=== PATIENT | female | born 1955 | race Caucasian/White ===

== ENCOUNTER 2025-04-07 14:52 | Emergency (ER) | payer OTHER ==
[~2025-04-07] VITALS: Ht 175.3 cm; Wt 132.0 kg
[2025-04-07 19:53] LABS: BASO # 0.1 10^3/uL (0.0-0.2); BASO % 0.8 % (0.0-1.0); EOS # 0.1 10^3/uL (0.0-0.5); EOS % 1.9 % (0.0-3.0); LYMPH # 2.8 10^3/uL (1.5-5.0); LYMPH % 38.4 % (24.0-44.0); MONO # 0.7 10^3/uL (0.0-0.8); MONO % 9.8 % (2.0-8.0); NEUTROPHILS # 3.5 10^3/uL (1.5-8.5); NEUTROPHILS % 48.8 % (36.0-66.0); PLATELET COUNT, AUTOMATED 253 10^3/uL (150-450)
[2025-04-07 20:14] LABS: INR 0.94
[2025-04-07] MEDS ORDERED: ISOVUE-370 76% 100 ML VIAL As Ordered ONE (20:22)
[2025-04-07 20:25] LABS: ALT/SGPT 13.0 U/L (7.0-40); AST/SGOT 14.0 U/L (<34)
[2025-04-07 20:54] LABS: CK-MB VALUE MASS 1.2 NG/ML (<3.6); CPK CREATINE PHOSPHOKINASE 102.0 U/L (34-145); MB/CK RELATIVE INDEX 1.17 (< OR =4)
[2025-04-07 22:44] LABS: CK-MB VALUE MASS 1.7 NG/ML (<3.6)
[2025-04-07] MEDS: ACETAMINOPHEN *IV* 1,000 MG in IV 1 EA IV ONE (23:40)
[2025-04-08] MEDS: ACETAMINOPHEN 325 MG TAB PO ONE (00:10)
[2025-04-08] MEDS ORDERED: PRED20TA PO (00:58)
[2025-04-08 01:00] VITALS: BP 118/55; TEMP 97.6; O2SAT 96
== END 2025-04-08 01:20 | disposition home or self-care (01) ==
LOC: M ED 14:52
DX: M71.22 Synovial cyst of popliteal space [Baker], left knee (principal); R00.1 Bradycardia, unspecified; E11.9 Type 2 diabetes mellitus without complications; Z79.52 Long term (current) use of systemic steroids
CPT/HCPCS: 71045; 71275; 80047; 80076; 82550; 82553; 84484; 85025; 85610; 85730; 93005; 93041; 93971; 94760; 96374; 99285; J2919; Q9967

== ENCOUNTER 2025-06-03 19:28 | Emergency (ER) | payer OTHER, MEDICAID ==
[~2025-06-03] VITALS: Ht 175.3 cm; Wt 133.2 kg
[~2025-06-03 19:28] MED LIST: ATOR1TAB19 PO; LOVE1INJ SC; METF500T13 PO; PRED20TA PO
[2025-06-03 20:47] LABS: BASO # 0.1 10^3/uL (0.0-0.2); BASO % 0.8 % (0.0-1.0); EOS # 0.2 10^3/uL (0.0-0.5); EOS % 3.7 % (0.0-3.0); LYMPH # 2.2 10^3/uL (1.5-5.0); LYMPH % 35.5 % (24.0-44.0); MONO # 0.6 10^3/uL (0.0-0.8); MONO % 10.2 % (2.0-8.0); NEUTROPHILS # 3.1 10^3/uL (1.5-8.5); NEUTROPHILS % 49.5 % (36.0-66.0); PLATELET COUNT, AUTOMATED 198 10^3/uL (150-450)
[2025-06-03] MEDS: NS (Normal Saline) 0.9% 1,000 ML IV ONE (20:59)
[2025-06-03] MEDS: MORPHINE 2 MG/ML 1 ML VIAL IV ONE ×2 (21:00→22:21)
[2025-06-03 21:13] LABS: ALT/SGPT 10.0 U/L (7.0-40); AST/SGOT 10.0 U/L (<34); CALCIUM LEVEL 8.3 MG/DL (8.3-10.6); CARBON DIOXIDE LEVEL 29.0 MMOL/L (20-31); CHLORIDE LEVEL 107.0 MMOL/L (98-107); CREATININE FOR GFR 0.89 MG/DL (0.55-1.30); GLOMERULAR FILTRATION RATE 70.1 (>45); POTASSIUM SERUM 4.3 MMOL/L (3.5-5.1); SODIUM LEVEL 144.0 MMOL/L (136-145)
[2025-06-03] MEDS ORDERED: ISOVUE-370 76% 100 ML VIAL As Ordered ONE (21:50)
[2025-06-03] MEDS ORDERED: AMOX875T2 PO (22:50)
[2025-06-03] MEDS ORDERED: PERC5TAB12 PO (22:50)
[2025-06-04] MEDS: AUGMENTIN 875 MG TAB PO ONE (00:02)
[2025-06-04] MEDS: PERCOCET 5MG/325MG TAB PO ONE (00:04)
[2025-06-04 01:44] VITALS: BP 160/67; TEMP 98.2; O2SAT 92
[2025-06-04] MEDS: OXYCODONE/APAP 5MG/325MG(HOME DOSE PACK) PO ONE (01:47)
== END 2025-06-04 01:49 | disposition home or self-care (01) ==
LOC: M ED 19:28
DX: R19.00 Intra-abdominal and pelvic swelling, mass and lump, unspecified site (principal); N28.1 Cyst of kidney, acquired; K76.89 Other specified diseases of liver; K57.30 Diverticulosis of large intestine without perforation or abscess without bleeding; Z98.890 Other specified postprocedural states; I10 Essential (primary) hypertension; E78.5 Hyperlipidemia, unspecified; E11.9 Type 2 diabetes mellitus without complications; D68.2 Hereditary deficiency of other clotting factors; Z79.2 Long term (current) use of antibiotics; Z79.899 Other long term (current) drug therapy; Z79.4 Long term (current) use of insulin; Z79.02 Long term (current) use of antithrombotics/antiplatelets
CPT/HCPCS: 36415; 74177; 80053; 83605; 83690; 84145; 85025; 87040; 96374; 96376; 99285; Q9967

== ENCOUNTER 2025-06-25 21:10 | Emergency (ER) | payer OTHER, MEDICAID ==
[~2025-06-25] VITALS: Ht 175.3 cm; Wt 133.0 kg
[~2025-06-25 21:10] MED LIST changes: +AMOX875T2 PO; +PERC5TAB12 PO
[2025-06-25 22:21] LABS: BASO # 0.1 10^3/uL (0.0-0.2); BASO % 0.8 % (0.0-1.0); EOS # 0.2 10^3/uL (0.0-0.5); EOS % 2.5 % (0.0-3.0); LYMPH # 2.2 10^3/uL (1.5-5.0); LYMPH % 26.4 % (24.0-44.0); MONO # 0.8 10^3/uL (0.0-0.8); MONO % 9.7 % (2.0-8.0); NEUTROPHILS # 5.1 10^3/uL (1.5-8.5); NEUTROPHILS % 60.1 % (36.0-66.0); PLATELET COUNT, AUTOMATED 235 10^3/uL (150-450)
[2025-06-25 23:04] LABS: ALT/SGPT 11 U/L (7.0-40); AST/SGOT 36 U/L (<34); CALCIUM LEVEL 8.3 MG/DL (8.3-10.6); CARBON DIOXIDE LEVEL 29 MMOL/L (20-31); CHLORIDE LEVEL 102 MMOL/L (98-107); CREATININE FOR GFR 0.87 MG/DL (0.55-1.30); FREE T4 1.07 NG/DL (0.89-1.76); GLOMERULAR FILTRATION RATE 72.1 (>45); POTASSIUM SERUM 5.6 MMOL/L (3.5-5.1); SODIUM LEVEL 139 MMOL/L (136-145)
[2025-06-25] MEDS: MORPHINE 2 MG/ML 1 ML VIAL IV ONE (23:30)
[2025-06-25] MEDS: ACETAMINOPHEN *IV* 1,000 MG in IV 1 EA IV ONE (23:48)
[2025-06-25] MEDS ORDERED: ISOVUE-370 76% 100 ML VIAL As Ordered ONE (23:50)
[2025-06-26] MEDS ORDERED: COLA100C5 PO (02:08)
[2025-06-26] MEDS: AUGMENTIN 875 MG TAB PO ONE (02:16)
[2025-06-26] MEDS: PERCOCET 5MG/325MG TAB PO ONE (02:17)
[2025-06-26] MEDS: DOCUSATE SODIUM 100 MG CAPSULE PO ONE (02:17)
[2025-06-26] MEDS: NS (Normal Saline) 0.9% 1,000 ML IV ONE (02:19)
[2025-06-26 02:25] VITALS: TEMP 98.5
[2025-06-26] MEDS: OXYCODONE/APAP 5MG/325MG(HOME DOSE PACK) PO ONE (02:56)
[2025-06-26 03:00] VITALS: BP 152/65; O2SAT 98
== END 2025-06-26 03:02 | disposition home or self-care (01) ==
LOC: M ED 21:10
DX: R55 Syncope and collapse (principal); L03.311 Cellulitis of abdominal wall; R00.1 Bradycardia, unspecified; J81.1 Chronic pulmonary edema; E11.9 Type 2 diabetes mellitus without complications; I10 Essential (primary) hypertension; E78.5 Hyperlipidemia, unspecified; Z79.2 Long term (current) use of antibiotics; Z79.899 Other long term (current) drug therapy; Z79.84 Long term (current) use of oral hypoglycemic drugs
CPT/HCPCS: 71045; 74177; 80048; 80076; 83690; 84439; 84443; 85025; 93005; 93041; 94760; 96374; 99285; J0134; Q9967

== ENCOUNTER → 2025-06-29 | Outpatient (REF) | payer OTHER, MEDICAID ==
[~2025-06-29] MED LIST changes: +COLA100C5 PO
[2025-06-29 15:31] LABS: ESTIMATED AVERAGE GLUCOSE 169.0 MG/DL (60-110)
== END ==
LOC: M SFHCWOUN 14:28
PROVIDERS: ATTEND Surgery
DX: S31.109A Unspecified open wound of abdominal wall, unspecified quadrant without penetration into peritoneal cavity, initial encounter (principal); E11.9 Type 2 diabetes mellitus without complications

== ENCOUNTER 2025-07-01 08:42 | Observation (INO) | payer OTHER, MEDICAID ==
[~2025-07-01] VITALS: Ht 175.3 cm; Wt 134.6 kg
[2025-07-01] MEDS: ACETAMINOPHEN 500 MG TAB PO ONE (09:15)
[2025-07-01] MEDS: ONDANSETRON 4MG/2ML VIAL IV ONE (12:01)
[2025-07-01] MEDS: MORPHINE 2 MG/ML 1 ML VIAL IV PRN (12:02)
[2025-07-01 12:09] LABS: BASO # 0.0 10^3/uL (0.0-0.2); BASO % 0.6 % (0.0-1.0); EOS # 0.1 10^3/uL (0.0-0.5); EOS % 1.1 % (0.0-3.0); LYMPH # 1.2 10^3/uL (1.5-5.0); LYMPH % 19.6 % (24.0-44.0); MONO # 0.6 10^3/uL (0.0-0.8); MONO % 8.8 % (2.0-8.0); NEUTROPHILS # 4.3 10^3/uL (1.5-8.5); NEUTROPHILS % 69.6 % (36.0-66.0); PLATELET COUNT, AUTOMATED 245 10^3/uL (150-450)
[2025-07-01 12:34] LABS: ALT/SGPT 10.0 U/L (7.0-40); AST/SGOT 15.0 U/L (<34); CALCIUM LEVEL 8.0 MG/DL (8.3-10.6); CARBON DIOXIDE LEVEL 31.0 MMOL/L (20-31); CHLORIDE LEVEL 102.0 MMOL/L (98-107); CREATININE FOR GFR 0.82 MG/DL (0.55-1.30); GLOMERULAR FILTRATION RATE 77.4 (>45); POTASSIUM SERUM 4.5 MMOL/L (3.5-5.1); SODIUM LEVEL 142.0 MMOL/L (136-145)
[2025-07-01 12:35] LABS: INR 0.95
[2025-07-01] MEDS: MORPHINE 4 MG/ML 1 ML VIAL IV PRN (13:57)
[2025-07-01] MEDS ORDERED: AMOX875T2 PO (14:03)
[2025-07-01] MEDS ORDERED: ENOX150I3 INJ (14:03)
[2025-07-01] MEDS ORDERED: DOCU100C16 PO (14:03)
[2025-07-01] MEDS ORDERED: METF10004 PO (14:04)
[2025-07-01] MEDS ORDERED: VITA1CAP25 PO (14:05)
[2025-07-01] MEDS ORDERED: OXYC1TAB23 PO (14:05)
[2025-07-01] MEDS ORDERED: HOME MED LIST COMPLETE! XX SCH (14:10)
[2025-07-01] MEDS ORDERED: LOSA50TA28 PO (14:10)
[2025-07-01] MEDS: AUGMENTIN 875 MG TAB PO SCH (15:00)
[2025-07-01 15:18] VITALS: BP 150/80; TEMP 97.9; O2SAT 94
[2025-07-01] MEDS: ENOXAPARIN 150 MG/ML SYRINGE SC SCH (16:27)
[2025-07-01 20:00] VITALS: BP 140/68; TEMP 97.7; O2SAT 93
[2025-07-01] MEDS: NYSTATIN 100,000 UNITS/GM TOPICAL PWD 15 GM TOP SCH (20:38)
[2025-07-02 04:00] VITALS: BP 153/63; TEMP 97.5; O2SAT 97
[2025-07-02 06:29] LABS: PLATELET COUNT, AUTOMATED 225 10^3/uL (150-450)
[2025-07-02 07:03] LABS: CALCIUM LEVEL 8.1 MG/DL (8.3-10.6); CARBON DIOXIDE LEVEL 31.0 MMOL/L (20-31); CHLORIDE LEVEL 101.0 MMOL/L (98-107); CREATININE FOR GFR 0.88 MG/DL (0.55-1.30); GLOMERULAR FILTRATION RATE 71.1 (>45); POTASSIUM SERUM 4.6 MMOL/L (3.5-5.1); SODIUM LEVEL 139.0 MMOL/L (136-145)
[2025-07-02] MEDS: PANTOPRAZOLE 40MG VIAL IV SCH (09:23)
[2025-07-02] MEDS: MIRALAX *UNIT DOSE* 17 GM PACKET PO SCH (09:23)
[2025-07-02 12:10] VITALS: BP 140/61; TEMP 98.2; O2SAT 97
[2025-07-02 12:12] VITALS: O2SAT 96
[2025-07-02 19:53] VITALS: BP 174/72; TEMP 98.7; O2SAT 93
[2025-07-02 22:41] VITALS: BP 156/76
[2025-07-03 04:30] VITALS: BP 144/70; TEMP 98.4; O2SAT 93
[2025-07-03 07:17] LABS: PLATELET COUNT, AUTOMATED 196 10^3/uL (150-450)
[2025-07-03 07:34] LABS: CALCIUM LEVEL 7.9 MG/DL (8.3-10.6); CARBON DIOXIDE LEVEL 27.0 MMOL/L (20-31); CHLORIDE LEVEL 104.0 MMOL/L (98-107); CREATININE FOR GFR 0.82 MG/DL (0.55-1.30); GLOMERULAR FILTRATION RATE 77.4 (>45); POTASSIUM SERUM 4.3 MMOL/L (3.5-5.1); SODIUM LEVEL 140.0 MMOL/L (136-145)
[2025-07-03] MEDS ORDERED: OXYC10TA12 PO (08:55)
== END 2025-07-03 11:14 | disposition home or self-care (01) ==
LOC: M ED 08:42 → M ED INP 08:43 → M MS4PR 15:17
PROVIDERS: ADMIT Student in an Organized Health Care Education/Training Program; ATTEND Student in an Organized Health Care Education/Training Program
DX: I82.401 Acute embolism and thrombosis of unspecified deep veins of right lower extremity (principal); E66.01 Morbid (severe) obesity due to excess calories; E11.9 Type 2 diabetes mellitus without complications; D68.51 Activated protein C resistance; Z91.199 Patient's noncompliance with other medical treatment and regimen due to unspecified reason; L02.211 Cutaneous abscess of abdominal wall; R26.89 Other abnormalities of gait and mobility; Z79.2 Long term (current) use of antibiotics; Z79.84 Long term (current) use of oral hypoglycemic drugs; Z79.899 Other long term (current) drug therapy
CPT/HCPCS: 36415; 73564; 80048; 80076; 85025; 85027; 85610; 85730; 93971; 96372; 96374; 96375; 96376; 97161; 97530; 99284; G0378; J1650; J2405; J2470

== ENCOUNTER 2025-07-16 13:14 | Inpatient (IN) | payer OTHER, MEDICAID ==
[~2025-07-16] VITALS: Ht 175.3 cm; Wt 133.2 kg
[~2025-07-16 13:14] MED LIST changes: +DOCU100C16 PO; +ENOX150I3 INJ; +LOSA50TA28 PO; +METF10004 PO; +OXYC10TA12 PO; +OXYC1TAB23 PO; +VITA1CAP25 PO
[2025-07-16 14:20] LABS: BASO # 0.1 10^3/uL (0.0-0.2); BASO % 0.9 % (0.0-1.0); EOS # 0.2 10^3/uL (0.0-0.5); EOS % 2.7 % (0.0-3.0); LYMPH # 1.4 10^3/uL (1.5-5.0); LYMPH % 24.5 % (24.0-44.0); MONO # 0.6 10^3/uL (0.0-0.8); MONO % 11.1 % (2.0-8.0); NEUTROPHILS # 3.4 10^3/uL (1.5-8.5); NEUTROPHILS % 60.6 % (36.0-66.0); PLATELET COUNT, AUTOMATED 259 10^3/uL (150-450)
[2025-07-16 14:43] LABS: C REACTIVE PROTEIN QUANTITATIV 3.96 MG/DL (<1.0); CALCIUM LEVEL 8.4 MG/DL (8.3-10.6); CARBON DIOXIDE LEVEL 30.0 MMOL/L (20-31); CHLORIDE LEVEL 104.0 MMOL/L (98-107); CREATININE FOR GFR 0.86 MG/DL (0.55-1.30); GLOMERULAR FILTRATION RATE 73.1 (>45); POTASSIUM SERUM 4.1 MMOL/L (3.5-5.1); SODIUM LEVEL 140.0 MMOL/L (136-145)
[2025-07-16 15:48] LABS: ALT/SGPT 13.0 U/L (7.0-40); AST/SGOT 12.0 U/L (<34)
[2025-07-16] MEDS ORDERED: ISOVUE-370 76% 100 ML VIAL As Ordered ONE (15:54)
[2025-07-16] MEDS ORDERED: HOME MED LIST COMPLETE! XX SCH (16:10)
[2025-07-16] MEDS: amLODIPine 5 MG TAB PO ONE (18:50)
[2025-07-16] MEDS ORDERED: DEXTROSE 50% 50 ML SYRINGE IV PRN (19:20)
[2025-07-16] MEDS ORDERED: MOM 30 ML SUSPENSION UDC PO PRN (19:20)
[2025-07-16] MEDS ORDERED: GLUCOSE 4 GM CHEW PO PRN (19:20)
[2025-07-16] MEDS ORDERED: GLUCAGON INJ 1 MG VIAL SC PRN (19:20)
[2025-07-16] MEDS: INSULIN LISPRO (NovoLOG) PER UNIT SC SCH (19:57)
[2025-07-16 20:31] LABS: PLATELET COUNT, AUTOMATED 239 10^3/uL (150-450)
[2025-07-16 23:01] VITALS: BP 158/62; TEMP 98.7; O2SAT 97
[2025-07-16] MEDS: HEPARIN DRIP 25,000 UNITS in IV 1 EA IV SCH (23:34)
[2025-07-17 04:09] VITALS: BP 141/63; TEMP 99; O2SAT 95
[2025-07-17 06:28] LABS: PLATELET COUNT, AUTOMATED 263 10^3/uL (150-450)
[2025-07-17 06:39] LABS: ALT/SGPT < 9 U/L (7.0-40); AST/SGOT 12 U/L (<34); CALCIUM LEVEL 8.2 MG/DL (8.3-10.6); CARBON DIOXIDE LEVEL 28 MMOL/L (20-31); CHLORIDE LEVEL 103 MMOL/L (98-107); CREATININE FOR GFR 0.79 MG/DL (0.55-1.30); GLOMERULAR FILTRATION RATE 80.9 (>45); MAGNESIUM LEVEL 1.7 MG/DL (1.8-2.4); POTASSIUM SERUM 4.0 MMOL/L (3.5-5.1); SODIUM LEVEL 139 MMOL/L (136-145)
[2025-07-17] MEDS: HEPARIN SOD 5000 UNITS/ML 1 ML VIAL/SYRINGE IV PRN (06:53)
[2025-07-17 08:00] VITALS: BP 169/68; TEMP 98.2; O2SAT 96
[2025-07-17] MEDS: NS (Normal Saline) 0.9% 1,000 ML IV SCH (10:05)
[2025-07-17] MEDS: PIPERACILLIN/TAZOBACTAM SOD 3.375 GM in DEXTROSE 5% (D5W) ADV/MINI-BAG 50 ML IV SCH (10:05)
[2025-07-17 12:00] VITALS: BP 145/55; TEMP 97.7; O2SAT 95
[2025-07-17] MEDS: CLINDAMYCIN 600 MG in IV 1 EA IV SCH (12:02)
[2025-07-17] MEDS: LOSARTAN 50 MG TABLET PO SCH (12:05)
[2025-07-17] MEDS: MAG SULF 1GM/100ML (MAG RUN) 1 GM in IV 1 EA IV SCH ×2 (12:43→14:20)
[2025-07-17] MEDS: ACETAMINOPHEN 325 MG TAB PO PRN (15:36)
[2025-07-17 16:00] VITALS: BP 152/77; TEMP 98.3; O2SAT 96
[2025-07-17] MEDS: INSULIN LISPRO (NovoLOG) PER UNIT SC SCH ×2 (18:17→20:47)
[2025-07-17 21:15] VITALS: BP 150/62; TEMP 97.9; O2SAT 97
[2025-07-18 03:25] VITALS: BP 154/65; TEMP 98.6; O2SAT 94
[2025-07-18 04:02] LABS: PLATELET COUNT, AUTOMATED 226 10^3/uL (150-450)
[2025-07-18 04:54] LABS: CALCIUM LEVEL 7.9 MG/DL (8.3-10.6); CARBON DIOXIDE LEVEL 28.0 MMOL/L (20-31); CHLORIDE LEVEL 104.0 MMOL/L (98-107); CREATININE FOR GFR 0.92 MG/DL (0.55-1.30); GLOMERULAR FILTRATION RATE 67.4 (>45); POTASSIUM SERUM 3.9 MMOL/L (3.5-5.1); SODIUM LEVEL 140.0 MMOL/L (136-145)
[2025-07-18 08:00] VITALS: BP 133/61; TEMP 98.4; O2SAT 95
[2025-07-18] MEDS: MIRALAX *UNIT DOSE* 17 GM PACKET PO SCH (09:00)
[2025-07-18 12:00] VITALS: BP 146/58; TEMP 97.8; O2SAT 96
[2025-07-18 16:00] VITALS: BP 142/60; TEMP 97.9; O2SAT 94
[2025-07-18 20:36] VITALS: BP 161/67; TEMP 98.3; O2SAT 97
[2025-07-19] VITALS (7 sets, daily range): BP systolic 130–147; BP diastolic 57–68; TEMP 97.9–98.7; O2SAT 95–97
[2025-07-19 07:15] LABS: PLATELET COUNT, AUTOMATED 245 10^3/uL (150-450)
[2025-07-19 08:12] LABS: CALCIUM LEVEL 8.2 MG/DL (8.3-10.6); CARBON DIOXIDE LEVEL 28.0 MMOL/L (20-31); CHLORIDE LEVEL 105.0 MMOL/L (98-107); CREATININE FOR GFR 1.02 MG/DL (0.55-1.30); GLOMERULAR FILTRATION RATE 59.6 (>45); POTASSIUM SERUM 4.3 MMOL/L (3.5-5.1); SODIUM LEVEL 141.0 MMOL/L (136-145)
[2025-07-19] MEDS: LIDOCAINE/PRILOCAINE CREAM 5 GM TUBE TOP PRN (10:27)
[2025-07-19 14:41] LABS: C REACTIVE PROTEIN QUANTITATIV 2.25 MG/DL (<1.0)
[2025-07-20 04:00] VITALS: BP 140/62; TEMP 98.2; O2SAT 95
[2025-07-20 06:21] LABS: PLATELET COUNT, AUTOMATED 226 10^3/uL (150-450)
[2025-07-20 07:27] LABS: CALCIUM LEVEL 8.2 MG/DL (8.3-10.6); CARBON DIOXIDE LEVEL 26.0 MMOL/L (20-31); CHLORIDE LEVEL 106.0 MMOL/L (98-107); CREATININE FOR GFR 0.98 MG/DL (0.55-1.30); GLOMERULAR FILTRATION RATE 62.5 (>45); POTASSIUM SERUM 4.0 MMOL/L (3.5-5.1); SODIUM LEVEL 143.0 MMOL/L (136-145)
[2025-07-20 08:11] VITALS: BP 160/67; TEMP 98.6; O2SAT 95
[2025-07-20 12:52] VITALS: BP 130/60; TEMP 97.9; O2SAT 97
[2025-07-20 20:37] VITALS: BP 165/70; TEMP 97.4; O2SAT 96
[2025-07-20 23:16] VITALS: BP 158/70; TEMP 98.5; O2SAT 94
[2025-07-21 03:21] VITALS: BP 163/67; TEMP 97.8; O2SAT 96
[2025-07-21 07:04] LABS: PLATELET COUNT, AUTOMATED 244 10^3/uL (150-450)
[2025-07-21 08:10] VITALS: BP 159/71; TEMP 98.3; O2SAT 94
[2025-07-21 08:20] LABS: CALCIUM LEVEL 8.1 MG/DL (8.3-10.6); CARBON DIOXIDE LEVEL 27.0 MMOL/L (20-31); CHLORIDE LEVEL 106.0 MMOL/L (98-107); CREATININE FOR GFR 1.08 MG/DL (0.55-1.30); GLOMERULAR FILTRATION RATE 55.6 (>45); POTASSIUM SERUM 4.2 MMOL/L (3.5-5.1); SODIUM LEVEL 143.0 MMOL/L (136-145)
[2025-07-21 09:37] VITALS: BP 133/53
[2025-07-21] MEDS ORDERED: PROBCAP14 PO (11:07)
[2025-07-21] MEDS ORDERED: LEVO1TAB40 PO (11:07)
[2025-07-21] MEDS ORDERED: CEFP200T PO (11:07)
[2025-07-21] MEDS ORDERED: OXYC-517 PO (11:09)
[2025-07-21 11:58] VITALS: BP 158/76; TEMP 98.4; O2SAT 95
[2025-07-21] MEDS: ENOXAPARIN 150 MG/ML SYRINGE SC ONE (13:46)
[2025-07-21] MEDS: PNEUMOC 21-VAL CONJ-DIP CRM/PF 0.5 ML SYRINGE IM.IMMUN ONE (13:46)
[2025-07-21] MEDS: NYSTATIN 100,000 UNITS/GM TOPICAL PWD 15 GM TOP SCH (13:47)
== END 2025-07-21 14:25 | disposition home or self-care (01) | DRG 603 ==
LOC: M ED 13:14 → EEVIPCON 19:20 → M ED INP 19:20 → M MSPAV 22:46
PROVIDERS: ADMIT Internal Medicine; ATTEND Internal Medicine
DX: L02.211 Cutaneous abscess of abdominal wall (principal); D68.51 Activated protein C resistance; E11.9 Type 2 diabetes mellitus without complications; B96.20 Unspecified Escherichia coli [E. coli] as the cause of diseases classified elsewhere; I10 Essential (primary) hypertension; Z86.711 Personal history of pulmonary embolism; Z86.718 Personal history of other venous thrombosis and embolism; Z95.828 Presence of other vascular implants and grafts; R00.1 Bradycardia, unspecified; Z79.84 Long term (current) use of oral hypoglycemic drugs; Z79.899 Other long term (current) drug therapy; Z91.048 Other nonmedicinal substance allergy status

== ENCOUNTER 2025-07-31 20:46 | Emergency (ER) | payer OTHER, MEDICAID ==
[~2025-07-31] VITALS: Ht 175.3 cm; Wt 139.1 kg
[~2025-07-31 20:46] MED LIST changes: +CEFP200T PO; +LEVO1TAB40 PO; +OXYC-517 PO; +PROBCAP14 PO
[2025-07-31 21:32] VITALS: TEMP 97.5
[2025-07-31 22:16] LABS: BASO # 0.1 10^3/uL (0.0-0.2); BASO % 1.6 % (0.0-1.0); EOS # 0.2 10^3/uL (0.0-0.5); EOS % 4.0 % (0.0-3.0); LYMPH # 2.0 10^3/uL (1.5-5.0); LYMPH % 45.2 % (24.0-44.0); MONO # 0.5 10^3/uL (0.0-0.8); MONO % 10.6 % (2.0-8.0); NEUTROPHILS # 1.7 10^3/uL (1.5-8.5); NEUTROPHILS % 38.4 % (36.0-66.0); PLATELET COUNT, AUTOMATED 199 10^3/uL (150-450)
[2025-07-31 22:49] LABS: CK-MB VALUE MASS 1.0 NG/ML (<3.6)
[2025-07-31 22:50] LABS: CPK CREATINE PHOSPHOKINASE 43 U/L (34-145); MB/CK RELATIVE INDEX 2.32 (< OR =4)
[2025-07-31 22:55] LABS: CK-MB VALUE MASS < 1.0 NG/ML (<3.6)
[2025-07-31 22:56] LABS: CPK CREATINE PHOSPHOKINASE 38 U/L (34-145)
[2025-08-01] MEDS: ACETAMINOPHEN *IV* 1,000 MG in IV 1 EA IV ONE (00:22)
[2025-08-01 00:27] LABS: KETONE, URINE AUTO RFX NEGATIVE (NEGATIVE); LEUKOCYTE ESTERASE UR AUTO RFX NEGATIVE (NEGATIVE); MUCUS, URINE RFX SMALL (NEGATIVE); NITRITE, URINE AUTO RFX NEGATIVE (NEGATIVE); RBC, URINE AUTO RFX 1 /HPF (0-3); SQUAM EPITHELIAL CELL UR AURFX 2 /HPF (0-6); WBC, URINE AUTO RFX 1 /HPF (0-3)
[2025-08-01 00:46] LABS: ALT/SGPT 10 U/L (7.0-40); AST/SGOT 12 U/L (<34); CALCIUM LEVEL 8.6 MG/DL (8.3-10.6); CARBON DIOXIDE LEVEL 29 MMOL/L (20-31); CHLORIDE LEVEL 109 MMOL/L (98-107); CREATININE FOR GFR 0.82 MG/DL (0.55-1.30); GLOMERULAR FILTRATION RATE 77.4 (>45); POTASSIUM SERUM 3.9 MMOL/L (3.5-5.1); SODIUM LEVEL 145 MMOL/L (136-145)
[2025-08-01] MEDS ORDERED: ISOVUE-370 76% 100 ML VIAL As Ordered ONE (00:51)
[2025-08-01 04:16] VITALS: BP 182/78; O2SAT 97
== END 2025-08-01 05:07 | disposition home or self-care (01) ==
LOC: EDBD 20:46 → M ED 20:46
DX: R07.89 Other chest pain (principal); R00.1 Bradycardia, unspecified; E11.9 Type 2 diabetes mellitus without complications; I10 Essential (primary) hypertension; E78.5 Hyperlipidemia, unspecified; E55.9 Vitamin D deficiency, unspecified; F17.210 Nicotine dependence, cigarettes, uncomplicated; Z86.711 Personal history of pulmonary embolism; Z91.048 Other nonmedicinal substance allergy status; Z79.84 Long term (current) use of oral hypoglycemic drugs; Z79.899 Other long term (current) drug therapy
CPT/HCPCS: 71045; 71275; 80048; 80076; 81001; 82550; 82553; 83690; 83880; 84443; 84484; 85025; 85730; 93005; 93041; 94760; 96374; 99285; J0134; Q9967

== ENCOUNTER → 2025-08-03 | Outpatient (REF) | payer OTHER, MEDICAID | LOC: M LAB REF 15:57 | PROVIDERS: ATTEND Student in an Organized Health Care Education/Training Program | DX: J35.1 Hypertrophy of tonsils (principal) ==